=== PATIENT | female | born 1990 | race Hispanic/Latino ===

== ENCOUNTER 2021-11-04 09:44 | Emergency (ER) | payer OTHER ==
[~2021-11-04] VITALS: Ht 12.7 cm; Wt 67.6 kg
[2021-11-04] MEDS ORDERED: LIDOCAINE 1% 5ML-MPF INJ ONE (10:00)
[2021-11-04] MEDS ORDERED: CEPHALEXIN500 MG PO (11:12)
[2021-11-04] MEDS ORDERED: ONDANSETRON ODT4 MG PO (11:12)
[2021-11-04] MEDS ORDERED: ULTRAM50 MG PO (11:12)
== END 2021-11-04 11:36 | disposition home or self-care (01) ==
LOC: ER 09:46
DX: S06.0X0A Concussion without loss of consciousness, initial encounter (principal); S01.322A Laceration with foreign body of left ear, initial encounter; W21.07XA Struck by softball, initial encounter; Y93.64 Activity, baseball; Y92.328 Other athletic field as the place of occurrence of the external cause
CPT/HCPCS: 70450; 99283

== ENCOUNTER 2022-12-31 09:19 | Emergency (ER) | payer OTHER ==
[~2022-12-31] VITALS: Ht 154.9 cm; Wt 73.9 kg
[~2022-12-31 09:19] MED LIST: CEPHALEXIN500 MG PO; ONDANSETRON ODT4 MG PO; ULTRAM50 MG PO
[2022-12-31] MEDS ORDERED: LIDOCAINE HCL 1% LOCAL INJ 20 ML VIAL INJ ONE (09:45)
== END 2022-12-31 10:27 | disposition home or self-care (01) ==
LOC: ER 09:23
DX: S61.210A Laceration without foreign body of right index finger without damage to nail, initial encounter (principal); W45.8XXA Other foreign body or object entering through skin, initial encounter; Y99.0 Civilian activity done for income or pay
CPT/HCPCS: 12001; 99282; J2001

== ENCOUNTER 2023-01-07 09:01 | Emergency (ER) | payer OTHER ==
[~2023-01-07] VITALS: Ht 154.9 cm; Wt 73.9 kg
== END 2023-01-07 09:10 | disposition home or self-care (01) ==
LOC: ER 09:03
DX: Z48.02 Encounter for removal of sutures (principal)
CPT/HCPCS: 99282; S0630